=== PATIENT | female | born 1985 | race American Indian/Alaskan Native ===

== ENCOUNTER 2016-07-03 22:21 | Outpatient (CLI) | payer MEDICAID ==
[2016-07-03 23:20] VITALS: BP 123/64
[2016-07-04] MEDS ORDERED: VISTARIL PO ONE (00:06)
== END 2016-07-04 01:30 | disposition home or self-care (01) ==
LOC: TRG 22:21
PROVIDERS: ATTEND Obstetrics & Gynecology
DX: Z34.93 Encounter for supervision of normal pregnancy, unspecified, third trimester (principal); Z3A.37 37 weeks gestation of pregnancy
CPT/HCPCS: 59025

== ENCOUNTER 2016-07-16 12:04 | Inpatient (IN) | payer MEDICAID ==
[2016-07-16] MEDS ORDERED: XYLOCAINE 2% INFILTRATI ONE (12:22)
[2016-07-16] MEDS ORDERED: SUBLIMAZE IV PRN (12:22)
[2016-07-16] MEDS ORDERED: ePHEDrine SULFATE IV PRN (12:22)
[2016-07-16] MEDS ORDERED: BRETHINE SUB-Q PRN (12:22)
[2016-07-16] MEDS ORDERED: MINERAL OIL PO PRN (12:22)
[2016-07-16] MEDS ORDERED: ZOFRAN IV PRN (12:22)
--- NOTE | 2016-07-16 12:22 | History and Physical Report ---
History of Present Illness Date of examination: 07/16/16 (pt sent from [facility] office 6-7cm dilated) Date of admission: 07/16/16 12:04 History of present illness: Past History : 5 Term Births: 1 Premature Births: 0 Living Children: 1 Para: 1 Mult. Births: 0 Prev : 0 Aborta: 3 Elect. Ab: 0 Spont. Ab: 3 Ectopics: 0 # 1 Delivery date: 2007 Weeks Gestation: 6 Delivery type: SAB Anesthesia type: none Delivery location: - Infant Sex: - weight: - Comments: none # 2 Delivery date: 03/07/2014 Weeks Gestation: 39 labor: no Delivery type: Anesthesia type: none Delivery location: [facility] weight: 6.81 Comments: No D & C # 3 Delivery date: 09/22/2014 Weeks Gestation: 5-6 Delivery type: SAB Delivery location: [facility] [place] Comments: No D&C # 4 Delivery date: 04/18/2015 Weeks Gestation: 5-6 Delivery type: SAB Comments: No D&C Past Medical History: Reviewed history from 11/12/2013 and no changes required: Negative Past Medical History Past Surgical History: Reviewed history from 10/05/2015 and no changes required: D&C: prior to 2013 Past Medical History Abnormal PAP: negative YIFAN Exposure: negative Infertility: negative Uterine Anomaly: negative Uterine Surgery (not C/S): negative Other Gynecologic Problems: negative Social Hx: Patient is single Smoking History: Patient has never smoked. Infection History HIV Risk Eval: no Active Medications: None Current Allergies (reviewed today): No known allergies Laboratory Results Routine Urinalysis Leukocytes: negative Nitrite: negative Urobilinogen: negative Protein: 1+ Blood: negative Ketone: large (160) Bilirubin: negative Glucose: negative Urine HCG: positive Review of Systems General Complains of fatigue. Denies fever, chills, sweats, anorexia, weakness, malaise, weight loss and sleep disorder. Denies vaginal discharge, incontinence, dysuria, hematuria, urinary frequency, amenorrhea, menorrhagia, abnormal vaginal bleeding, pelvic pain, genital sores, decreased libido, painful periods, painful sex, urinary urgency, hot flashes, vaginal dryness, vaginal itching and vaginal odor. CV Denies chest pains, palpitations, syncope, dyspnea on exertion, orthopnea, PND and peripheral edema. Resp Denies cough, dyspnea at rest, excessive sputum, hemoptysis, wheezing and pleurisy. GI Denies nausea, vomiting, diarrhea, constipation, change in bowel habits, abdominal pain, melena, hematochezia, jaundice, gas/bloating, indigestion/ heartburn, dysphagia and odynophagia. Breast Complains of breast pain. Denies left breast lump, right breast lump, nipple discharge, bloody discharge from nipple, abnormal mammogram and breast enlargement. Psych Denies depression, anxiety, irritability and mood swings. 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 No evidence of cystocele or rectocele. Cervix: normal appearance, no lesions, no discharge Uterus: normal position, midline, mobile Adnexae: no masses or tenderness Rectovaginal: no masses or tenderness Past History - Obstetrical History Expected Date of Delivery: 07/20/16 Actual Gestation: 39 Week(s) 3 Day(s) : 8 Para: 1 Number of Living Children: 1 Medications and Allergies Allergies Allergy/AdvReac Type Severity Reaction Status Date / Time No Known Allergies Allergy Verified 01/27/14 21:26 Home Medications Medication Instructions Recorded Confirmed Last Taken Type Vit#96/Ferrous Fum/FA 1 tab PO DAILY 01/27/14 03/07/14 03/07/14 09:00 History [ Tablet] - Physical Exam Breasts: Positive: deferred Cardiovascular: Regular rate, Normal S1, Normal S2 Lungs: Positive: Normal air movement Abdomen: Positive: normal appearance, soft, normal bowel sounds. Negative: distention, tenderness Genitourinary (Female): Positive: normal external genitalia Vulva: both: normal Vagina: Positive: normal moisture. Negative: discharge Cervix: Negative: lesion, discharge Uterus: Positive: normal size, normal contour Adnexa: both: normal Anus/Rectum: Positive: normal perianal skin, heme negative. Negative: rectal mass, hemorrhoids Extremities: Positive: normal Deep Tendon Reflex Grade: Normal +2 - Obstetrical FHR: category 2 (early's) Uterine Contraction Monitor Mode: External Cervical Dilatation: 6.5 (per CNM in office) Cervical Effacement Percentage: 70 station: -1 Uterine Contraction Pattern: Regular Uterine Contraction Intensity: Moderate Results All other labs normal. Laboratory Data-Patient Name: LESTER WEBSTER Test Date Result Blood Type 12/13/2015 A Rh 12/13/2015 Negative Antibody Screen negative Rubella 12/13/2015 IMMUNE Serology (RPR) 06/15/2016 NR HBsAg 12/13/2015 Negative Hemoglobin 04/03/2016 11.6 Hematocrit 04/03/2016 33.9 Platelets 12/13/2015 291 [id number]/UL Chlamydia DNA 06/15/2016 Negative GC DNA/Culture 06/15/2016 Urine Culture 12/13/2015 Final report Group B Strep cult negative PAP 11/18/2015 Normal, Satisfactory HIV 06/15/2016 AFP/Quad Screen Glucola Test 3hr GTT (Fasting) 1 hr 2 hr 3 hr [facility]-Patient Name:LESTER WEBSTER Test Date Result Varicella Ab Sickle Cell 12/13/2015 Negative PPD Fibronectin Cystic Fibrosis Parvovirus TSH 10/05/2015 1.300 Free T4 Hepatitis C ALT AST Uric Acid Creatinine 24 hr Urine Protein CHANTAL Assessment and Plan 31yo @ 39 weeks in active labor GBS negative Orders in EMR
[2016-07-16 12:46] LABS: Hematocrit 36.4 % (30.3-42.9); Hemoglobin 12.9 gm/dl (10.1-14.3); Mean Corpuscular HGB Conc 35 % (30-34); Mean Corpuscular Hemoglobin 31 pg (28-32); Mean Corpuscular Volume 87 fl (79-97); Platelet Count 251 K/mm3 (140-440); Red Blood Count 4.17 M/mm3 (3.65-5.03); Red Cell Distribution Width 13.3 % (13.2-15.2); White Blood Count 8.4 K/mm3 (4.5-11.0)
[2016-07-16] MEDS ORDERED: PITOCin/NS 20 UNIT/1000ML DRIP 20 UNITS/1,000 ML BAG IV SCH (13:00)
[2016-07-16] MEDS ORDERED: LACTATED RINGERS 1,000 ML IV SCH (13:00)
[2016-07-16] MEDS ORDERED: PITOCin/NS 30 UNIT/500ML 30 UNITS/500 ML BAG IV SCH (13:00)
[2016-07-16] MEDS ORDERED: PHENERGAN PO PRN (14:14)
[2016-07-16] MEDS ORDERED: LANSINOH TP PRN (14:14)
[2016-07-16] MEDS ORDERED: TUCKS PAD TP PRN (14:14)
[2016-07-16] MEDS ORDERED: BENADRYL PO PRN (14:14)
[2016-07-16] MEDS ORDERED: MILK OF MAGNESIA PO PRN (14:14)
[2016-07-16] MEDS ORDERED: NORCO 5/325 PO PRN (14:14)
[2016-07-16] MEDS ORDERED: DULCOLAX PR PRN (14:30)
[2016-07-16] MEDS ORDERED: DERMOPLAST TP PRN (14:30)
[2016-07-16] MEDS ORDERED: TYLENOL PO PRN (14:30)
[2016-07-16] MEDS ORDERED: SODIUM CHLORIDE FLUSH SYRINGE 10 ML IV NR (15:00)
--- NOTE | 2016-07-16 15:46 | Procedure Note ---
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 8/9, EBL 300, Wgt 6-3. Pit IM. Pt OOB to shower Once returned to bed Pit IVFs going FF below umb Lochia small Mom and baby remain LDR stable. - Infant A at 1 minute: 8 at 5 minutes: 9 Gender: Female (wgt 6-3)
[2016-07-17] MEDS: MOTRIN PO SCH ×4 (00:02→12:05)
[2016-07-17] MEDS: COLACE PO SCH ×2 (00:02→10:50)
[2016-07-17 04:00] LABS: Hematocrit 35.8 % (30.3-42.9); Hemoglobin 12.6 gm/dl (10.1-14.3)
--- NOTE | 2016-07-17 07:56 | Progress Note ---
Assessment and Plan Patient doing well w/o complaints. desires d/c home today as long as baby can also be d/c'd home. VSSAF, srini scant, H&H 12.6/35.8. Plan for d/c home with routine f/u in office. - Patient Problems (1) Vaginal delivery Current Visit: No Status: Acute Subjective - Subjective Date of service: 07/17/16 Principal diagnosis: day #1 s/p Patient reports: appetite normal, voiding normally, pain well controlled, ambulating normally, no dizzy ambulation, no nauseated : doing well, nursing well Objective - Vital Signs Latest vital signs: Vital Signs Temp Pulse Pulse Resp BP BP 07/17/16 00:52 98.6 F 65 20 103/58 07/16/16 21:33 98.5 F 54 L 20 106/61 07/16/16 17:03 97.8 F 70 18 116/72 07/16/16 16:11 54 L 131/71 07/16/16 15:56 60 129/83 07/16/16 15:41 74 120/79 07/16/16 15:26 79 128/79 07/16/16 15:14 67 127/84 07/16/16 14:07 72 124/66 07/16/16 12:48 98.3 F 18 Intake and Output 07/16/16 07/17/16 07/17/16 22:59 06:59 14:59 Intake Total 720 Output Total 600 500 Balance 120 -500 Intake: Oral 360 Intake, Free Water 360 Output: Urine 600 500 Void 600 500 Other: Total, Intake Amount 360 Total, Output Amount 600 500 - Exam Breasts: Present: normal Cardiovascular: Present: Regular rate Lungs: Present: Clear to auscultation, Normal air movement Abdomen: Present: normal appearance, soft, normal bowel sounds Vulva: both: normal Uterus: Present: normal, firm, fundal height at umbilicus Extremities: Present: normal - Labs Labs: Abnormal lab results 07/16/16 Range/Units 12:30 MCHC 35 H (30-34) %
--- NOTE | 2016-07-17 08:02 | Discharge Summary ---
Providers - Providers Date of Admission: 07/16/16 12:04 Date of discharge: 07/17/16 (desires d/c home) Attending physician: SYDNEY GRIFFITH Primary care physician: SYDNEY GRIFFITH Hospitalization Reason for admission: active labor Delivery: Episiotomy: none Laceration: none Other procedures: none complications: none Discharge diagnosis: IUP at term delivered [place] baby: female Hospital course: uncomplicated vaginal delivery Condition at discharge: Good Disposition: DISCHARGED TO HOME OR SELFCARE - Discharge Diagnoses (1) Vaginal delivery Status: Acute Plan - Discharge Medications Prescriptions: Ibuprofen [Motrin 800 MG tab] 800 mg PO Q8HR PRN #30 tablet PRN Reason: Pain Lidocain2.5%/Prilocai2.5% [Emla] 5 gm TP ONCE PRN #1 tube PRN Reason: Pain - Provider Discharge Summary Activity: routine, no sex for 6 weeks, no heavy lifting 4 weeks, no strenuous exercise Diet: routine Instructions: routine Additional instructions: [] Smoking cessation referral if applicable(refer to patient education folder for contact #) [] Refer to [facility] Book[facility] Call your doctor immediately for: * Fever > 100.5 * Heavy vaginal bleeding ( >1 pad per hour) * Severe persistent headache * Shortness of breath * Reddened, hot, painful area to leg or breast * Drainage or odor from incision. * Keep incision clean and dry at all times and follow doctor's instructions regarding bathing/showering - Follow up plan Follow up: SYDNEY GRIFFITH MD [Primary Care Provider] - 08/14/16 (Congratulations! Please call [phone] to schedule your visit in 4 weeks. Call for any questions or concerns. )
[2016-07-17] MEDS ORDERED: PRENATAL VITAMIN PO SCH (10:00)
[2016-07-17] MEDS ORDERED: BOOSTRIX IM ONE (14:14)
[2016-07-17] MEDS ORDERED: M-M-R II VACCINE SUB-Q ONE (14:14)
[2016-07-17 17:37] VITALS: BP 100/62
== END 2016-07-17 17:00 | disposition home or self-care (01) | DRG 775 ==
LOC: LD 12:04 → OB 16:53
PROVIDERS: ADMIT Obstetrics & Gynecology; ATTEND Obstetrics & Gynecology
PROC: 10E0XZZ Delivery of Products of Conception, External Approach (ICD-10-PCS; principal; 2016-07-16)
PROC: 30233S1 Transfusion of Nonautologous Globulin into Peripheral Vein, Percutaneous Approach (ICD-10-PCS; 2016-07-17)
DX: O69.81X0 Labor and delivery complicated by cord around neck, without compression, not applicable or unspecified (principal); Z3A.39 39 weeks gestation of pregnancy; Z37.0 Single live birth
CPT/HCPCS: 36415; 85014; 85018; 85027; 85461; 86592; 86850; 86900; 86901; J2405; J2590; J2790; J3010; J7120

== ENCOUNTER 2020-01-29 06:04 | Day surgery (SDC) | payer MEDICAID ==
[2020-01-27 10:20] LABS: Mean Corpuscular HGB Conc 37 % (30-34); Mean Corpuscular Volume 86 fl (79-97); Platelet Count 311 K/mm3 (140-440); Red Blood Count 4.23 M/mm3 (3.65-5.03); Red Cell Distribution Width 12.5 % (13.2-15.2)
[2020-01-27 10:29] LABS: Hematocrit 36.3 % (30.3-42.9); Hemoglobin 13.4 gm/dl (10.1-14.3)
--- NOTE | 2020-01-28 19:18 | History and Physical Report ---
History of Present Illness Date of examination: 01/25/20 History of present illness: Patient has been reassessed/reevaluated. H&P has been reviewed. No interval changes. Patient desires sterilization. Discussed with various methods of contraceptives including abstinence, barrier and hormonal. Discussed oral, implantable, dermal, injectable,intravaginal and intrauterine methods. Patient declined temporary contraceptives. Discuss the permanency of sterilization. Vital Signs: Patient Profile: 34 Years Old Female LMP: 01/05/2020 Height: 66.5 inches (168.91 cm) Weight: 129 pounds BMI: 20.51 Temp: 98.2 degrees F BP sittin 102 / 70 (left arm) Menstrual History: LMP (date): 01/05/2020 On BCP's at conception: no Current Method of Contraception: None Date of Last Pap Smear: 07/10/2019 Past History : 7 Term Births: 2 Premature Births: 0 Living Children: 2 Para: 2 Mult. Births: 0 Prev : 0 Prev. attempt? 0 Aborta: 5 Elect. Ab: 0 Spont. Ab: 5 Ectopics: 0 # 1 Delivery date: 2007 Weeks Gestation: 6 Delivery type: SAB Anesthesia type: none Delivery location: - Sex: - weight: - Comments: none # 2 Delivery date: 03/07/2014 Weeks Gestation: 39 labor: no Delivery type: Anesthesia type: none Delivery location: [facility] weight: 6.81 Comments: No D & C # 3 Delivery date: 09/22/2014 Weeks Gestation: 5-6 Delivery type: SAB [place] [facility] [place] Comments: No D&C # 4 Delivery date: 04/18/2015 Weeks Gestation: 5-6 Delivery type: SAB Comments: No D&C # 5 Delivery date: 07/16/2016 Weeks Gestation: 39 Delivery type: Vaginal Anesthesia type: none Delivery location: [facility] Sex: female weight: 6'8' Comments: none # 6 Delivery date: 11/2018 Weeks Gestation: ? 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 of genital herpes: no Partner hx. of genital herpes: no Hx of STD: none Active Medications: None Current Allergies: No known allergies Past Medical History: Mild CP Past Surgical History: D&C: Family History Summary: Other Family Member - Has No Family History of Ovarvian Cancer - Entered On: 09/30/2014 Other Family Member - Has No Family History of Colon Cancer - Entered On: 09/30/2014 Other Family Member - Has No Family History of Cervical Cancer - Entered On: 09/30/2014 Other Family Member - Has No Family History of Breast Cancer - Entered On: 09/30/2014 Social History: Patient is single Smoking History: Patient has never smoked. Risk Factors: Smoked Tobacco Use: Never smoker Smokeless Tobacco Use: Never Passive smoke exposure: no Drug use: no HIV high-risk behavior: no Caffeine use: 0 drinks per day Alcohol use: no Exercise: no Seatbelt use: 100 % PAP Smear History: Date of Last PAP Smear: 07/10/2019 Review of Systems General Denies fever, chills, sweats, anorexia, fatigue, weakness, malaise, weight loss and sleep disorder. Denies vaginal discharge, incontinence, dysuria, hematuria, urinary frequency, amenorrhea, menorrhagia, abnormal vaginal bleeding, pelvic pain, genital sores, decreased libido, painful periods, painful sex, urinary urgency, hot flashes, vaginal dryness, vaginal itching and vaginal odor. CV Denies chest pains, palpitations, syncope, dyspnea on exertion, orthopnea, PND and peripheral edema. Resp Denies cough, dyspnea at rest, excessive sputum, hemoptysis, wheezing and pleurisy. GI Denies nausea, vomiting, diarrhea, constipation, change in bowel habits, abdominal pain, melena, hematochezia, jaundice, gas/bloating, i ndigestion/heartburn, dysphagia and odynophagia. Breast Denies left breast lump, right breast lump, nipple discharge, bloody discharge from nipple, breast pain, abnormal mammogram and breast enlargement. Psych Denies depression, anxiety, irritability and mood swings. [ Past History Past Medical History: other (SEE HPI FOR DETAILS) Past Surgical History: Other (SEE HPI FOR DETAILS) Social history: full code, other (SEE HPI FOR DETAILS) Family history: other (SEE HPI FOR DETAILS) Medications and Allergies Allergies Allergy/AdvReac Type Severity Reaction Status Date / Time No Known Allergies Allergy Verified 01/22/20 15:33 Home Medications Medication Instructions Recorded Confirmed Last Taken Type Ibuprofen [Motrin 800 MG tab] 800 mg PO Q8HR PRN #30 tablet 07/17/16 01/22/20 Un known Rx Review of Systems Constitutional: other (SEE HPI FOR DETAILS) Exam - Physical Exam Narrative exam: HEENT: normocephalic, no lesions or deformities Skin no significant abnormal lesions or rashes Chest: respiratory effort normal, clear to auscultation CV: regular, normal S1-S2, no murmur, no rub, no gallop Abdomen: normal bowel sounds, soft, nontender, no HSM Neuro: no gross anomalities Extremities: no clubbing, cyanosis, or edema 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 No evidence of cystocele or rectocele. Cervix: normal appearance, no lesions, no discharge Uterus: normal position, midline, mobile Adnexae: no masses or tenderness Rectovaginal: no masses or tenderness - Constitutional Vitals: Temp Pulse Resp BP Pulse Ox 98.7 F 70 18 98/55 98 01/27/20 09:45 01/27/20 09:45 01/27/20 09:45 01/27/20 09:45 01/27/20 09:45 Results - Labs CBC & Chem 7: 01/27/20 09:50 Assessment and Plan - Patient Problems (1) Encounter for sterilization Current Visit: Yes Status: Acute Plan to address problem: Patient desires sterilization.Discuss the permanency of sterilization. High risk of regret and 0.5 to 1% risk of failure. Discussed options of tubal blockage and salpingectomy and it's possible benefit of preventing ovarian cancer and increased risks of bleeding during the procedure. Discuss the risks of the surgery including infection, bleeding possibly heavy enough to require a blood transfusion, possible damage to bowel, bladder or ureter. Patient understands and desires to proceed with tubal blockage. 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
[2020-01-29] MEDS ORDERED: MIDAZOLAM 2 MG/2 ML INJ ONE (07:09)
[2020-01-29] MEDS ORDERED: LACTATED RINGERS 1,000 ML ONE (07:09)
[2020-01-29] MEDS ORDERED: BUPIVACAINE/PF (0.5%) 5 MG/1 ML 10 ML VIAL INFILTRATI ONE ×2 (07:12→08:15)
[2020-01-29] MEDS ORDERED: HYDROmorphone 1 MG/1 ML INJ IV PRN ×2 (07:15)
[2020-01-29] MEDS ORDERED: ONDANSETRON 4 MG/2 ML INJ IV PRN (07:15)
--- NOTE | 2020-01-29 07:16 | Anesthesia Day of Surgery ---
Anesthesia Day of Surgery - Day of Surgery Patient Examined: Yes Patient H&P Reviewed: Yes Patient is NPO: Yes
--- NOTE | 2020-01-29 07:16 | Anesthesia Consultation ---
Anesthesia Consult and Med Hx Date of service: 01/29/20 - Airway Anesthetic Teeth Evaluation: Good ROM Head & Neck: Adequate Mental/Hyoid Distance: Adequate Mallampati Class: Class II Intubation Access Assessment: Good - Pre-Operative Health Status ASA Pre-Surgery Classification: ASA1 Proposed Anesthetic Plan: General - Pulmonary Hx Asthma: No COPD: No Hx Pneumonia: No - Cardiovascular System Hx Hypertension: No - Central Nervous System Hx Seizures: No Hx Psychiatric Problems: No - Endocrine Hx Renal Disease: No Hx End Stage Renal Disease: No Hx Hypothyroidism: No Hx Hyperthyroidism: No - Hematic Hx Anemia: No Hx Sickle Cell Disease: No - Other Systems Hx Alcohol Use: No Hx Cancer: No
[2020-01-29] MEDS ORDERED: propofoL 200 MG/20 ML VIAL IV ONE (07:18)
[2020-01-29] MEDS ORDERED: ROCURONIUM 50 MG/5 ML INJ IV ONE (07:19)
[2020-01-29] MEDS ORDERED: LIDOCAINE MPF (2%) 20 MG/1 ML VIAL 5 ML ONE (07:19)
[2020-01-29] MEDS ORDERED: MIDAZOLAM 2 MG/2 ML INJ IV NR (08:00)
[2020-01-29] MEDS ORDERED: LACTATED RINGERS 1,000 ML IV SCH (08:00)
[2020-01-29] MEDS ORDERED: ONDANSETRON 4 MG/2 ML INJ ONE (08:14)
[2020-01-29] MEDS ORDERED: NEOSTIGMINE 10MG/10 ML INJ MDV ONE (08:14)
[2020-01-29] MEDS ORDERED: KETOROLAC 30 MG/1 ML INJ ONE (08:14)
[2020-01-29] MEDS ORDERED: GLYCOPYRROLATE 0.4 MG/2 ML INJ ONE ×2 (08:14)
[2020-01-29] MEDS ORDERED: SODIUM CHLORIDE 0.9% IRR 1,500 ML BOTTLE IR ONE (08:15)
--- NOTE | 2020-01-29 08:41 | Operative Report ---
Operative Report Operative Report: Date [default value] Preoperative diagnosis: Multiparity desiring permanent sterilization Post-operative diagnosis: Same Procedure name(s): Laparoscopic bilateral tubal ligation with Filshie clips Surgeon: Krystian Chauhan MD Filler Shredder: [] Anesthesia: General endotracheal EBL: Minimal Complications: None Findings: Normal uterus and tubes bilaterally Specimen(s): None Patient was brought in the operating room. General anesthesia was induced without difficulty. She was placed in dorsal lithotomy position. Prepped and draped in usual sterile manner. Her urinary bladder with was emptied with a red rubber catheter. A Food Runner uterine manipulator was placed. Attention was then switched to the patient's abdomen. An infra-umbilical incision was made with a scalpel. This incision was spread with a hemostat. A 5 mm trocar was placed in this incision while lifting high the abdominal wall. Intra-abdominal presence was verified directly with the laparoscope. The patient was then insufflated to approximately 3 L of CO2 gas. The patient's findings as noted above. An accessory puncture was made suprapubically. The 8 mm trocar was placed through this incision under direct visualization with no evidence of internal organ damage. Each of the fallopian tube were identified by its fimbriated end. A portion approximately 1-2 cm from each cornua was grasped with the Filshie clip applicator. A Filshie clip on the fallopian tube were placed without any difficulty bilaterally. At this time all instruments were removed. The patient was insufflated. The skin incisions were closed subcuticular with 4-0 Vicryl. Marcaine was given subcuticularly for postoperative pain relief. The patient tolerated procedure well. She was awakened in the operating room and accompanied to the recovery room in good condition.
--- NOTE | 2020-01-29 08:45 | Short Stay Summary ---
Short Stay Documentation Date of service: 01/29/20 - History Past Medical History: other (SEE HPI FOR DETAILS) Past Surgical History: Other (SEE HPI FOR DETAILS) Social history: full code, other (SEE HPI FOR DETAILS) - Allergies and Medications Current Medications: Allergies No Known Allergies Allergy (Verified 01/29/20 07:22) Home Medications Medication Instructions Recorded Confirmed Last Taken Type Ibuprofen [Motrin 800 MG tab] 800 mg PO Q8HR PRN #30 tablet 07/17/16 01/22/20 Unknown Rx oxyCODONE /ACETAMINOPHEN [Percocet 1 - 2 tab PO Q6HR PRN #10 tablet 01/29/20 Un known Rx 5/325 mg] Active Medications Hydromorphone HCl (Dilaudid) 0.25 mg IV Q10MIN PRN PRN Reason: Pain, Moderate (4-6) Hydromorphone HCl (Dilaudid) 0.5 mg IV Q10MIN PRN PRN Reason: Pain , Severe (7-10) Lactated Ringer's (Lactated Ringers) 1,000 mls @ 125 mls/hr IV DIRECT LOVE Midazolam HCl (Versed) 2 mg IV PREOP NR Stop: 01/29/20 23:59 Ondansetron HCl (Zofran) 4 mg IV ONCE PRN PRN Reason: Nausea And Vomiting - Physical exam General appearance: no acute distress HEENT: Atraumatic Lungs: Normal air movement Breasts: deferred Heart: Regular rate Gastrointestinal: distended Female Genitourinary: deferred Rectal Exam: deferred Extremities: no ischemia, pulses intact - Brief post op/procedure progress note Date of procedure: 01/29/20 (See operative note for details) - Hospital course Hospital course: Patient was admitted underwent the above him procedure without any complications. Patient will be discharged with follow-up in office in 1-2 weeks for postop check. - Disposition Condition at discharge: Good Disposition: DC-01 TO HOME OR SELFCARE - Discharge Diagnoses (1) Encounter for sterilization Status: Acute (2) Mild cerebral palsy Status: Chronic Short Stay Discharge Plan Activity: no restrictions, advance as tolerated Diet: regular Wound: open to air Additional Instructions: Patient office for fever, chills, nausea, vomiting or pain uncontrolled by pain relief. Follow up with: PRIMARY CARE,MD [Primary Care Provider] - 7 Days Prescriptions: oxyCODONE /ACETAMINOPHEN [Percocet 5/325 mg] 1 - 2 tab PO Q6HR PRN #10 tablet PRN Reason: Pain
--- NOTE | 2020-01-29 09:40 | Post Anesthesia Evaluation ---
- Post Anesthesia Evaluation Patient Participated: Yes Airway Patent: Yes Stable Respiratory Function: Yes Nausea/Vomiting: No Temp > 96.8F: Yes Pain Manageable: Yes Adequeate Hydration: Yes Anesthesia Complications: No Block Receding Appropriately: Not Applicable Patient on Ventilator: No
[2020-01-29 11:01] VITALS: BP 120/75
== END 2020-01-29 10:35 | disposition home or self-care (01) ==
LOC: OR 06:04
PROVIDERS: ATTEND Obstetrics & Gynecology
DX: Z30.2 Encounter for sterilization (principal); G80.9 Cerebral palsy, unspecified; Z79.899 Other long term (current) drug therapy; Z80.8 Family history of malignant neoplasm of other organs or systems; Z98.890 Other specified postprocedural states; Z82.49 Family history of ischemic heart disease and other diseases of the circulatory system
CPT/HCPCS: 36415; 58671; 84703; 85027; 93005; J1170; J1885; J2250; J2405; J2704; J2710; J7120

== ENCOUNTER 2020-04-08 16:07 | Emergency (ER) | payer MEDICAID ==
[2020-04-08 20:32] LABS: Bilirubin,Urine NEG (Negative); Blood,Urine NEG (Negative); Color,Urine Yellow (Yellow); HCG Qualitative,Urine Negative (Negative); Mucus,Urine 2+ /HPF; Protein,Urine <15 mg/dL mg/dL (Negative); RBC,Urine < 1.0 /HPF (0.0-6.0); Urobilinogen,Urine < 2.0 mg/dL (<2.0)
--- NOTE | 2020-04-08 21:31 | Ultrasound Report ---
US pelvic complete, US transvaginal INDICATION / CLINICAL INFORMATION: pelvic pain after tubal ligation on 01/28 COMPARISON: None available. TECHNIQUE: Multiple sonographic images of the pelvis were obtained and assessed for grayscale appeara nce and color Doppler flow. FINDINGS: The uterus measures 8.7 x 4.6 x 4.9 cm and is normal in echogenicity. The endometrial stripe measures 0.5 cm in thickness. The right ovary measures 2.9 x 1.9 x 2.2 cm and is normal in echogenicity. There are multiple small s imple right ovarian cysts, the largest measuring 1.3 cm. The left ovary measures 4.2 x 2.9 x 2.7 cm and is normal in echogenicity. There are multiple small si mple left ovarian cysts, the largest measuring 1.9 cm. There is trace pelvic free fluid adjacent to the cervix. IMPRESSION: 1. Bilateral simple ovarian cysts, likely physiologic. 2. Trace pelvic free fluid adjacent to the cervix. Signer Name: Graham Bedoya MD Signed: 04/08/2020 9:27 PM Workstation Name: [id number]
--- NOTE | 2020-04-08 21:51 | Emergency Department Report ---
ED Female HPI - General Chief complaint: Abdominal Pain Stated complaint: ABDOMINAL/PELVIC PAIN/LIGHT HEADED Time Seen by Provider: 04/08/20 20:09 Source: patient Mode of arrival: Ambulatory Limitations: No Limitations - History of Present Illness Initial comments: Patient is a 34-year-old female presents emergency room complaints of pelvic pain that began couple weeks ago. She states that she also has pain at her incision site. She states that she had a tubal ligation by Dr. Stanley on January 28. She denies any vaginal bleeding, vaginal discharge, drainage from the site, fever, vomiting, diarrhea, dysuria, any other symptoms. She states that she has followed up with her CONTRACT MANAGER twice and was advised that her symptoms were likely normal. She denies any past medical history. No allergies to medications. Last menstrual cycle mid February. - Related Data Previous Rx's Medication Instructions Recorded Last Taken Type Ibuprofen [Motrin 800 MG tab] 800 mg PO Q8HR PRN #30 tablet 07/17/16 1 Week Ago Rx ~01/22/20 oxyCODONE /ACETAMINOPHEN [Percocet 1 - 2 tab PO Q6HR PRN #10 tablet 01/29/20 Unknown Rx 5/325 mg] Naproxen [EC-Naprosyn] 500 mg PO BID PRN #14 tablet. 04/08/20 Unknown Rx Allergies Allergy/AdvReac Type Severity Reaction Status Date / Time No Known Allergies Allergy Verified 01/29/20 07:22 ED Review of Systems ROS: Stated complaint: ABDOMINAL/PELVIC PAIN/LIGHT HEADED Other details as noted in HPI Comment: All other systems reviewed and negative ED Past Medical Hx - Past Medical History Previous Medical History?: No Hx Hypertension: No Hx Congestive Heart Failure: No Hx Diabetes: No Hx Deep Vein Thrombosis: No Hx Renal Disease: No Hx Sickle Cell Disease: No Hx Seizures: No Hx Asthma: No Hx COPD: No Hx HIV: No - Surgical History Past Surgical History?: Yes Additional Surgical History: tubal ligation - Social History Smoking Status: Never Smoker - Medications Home Medications: Home Medications Medication Instructions Recorded Confirmed Last Taken Type Ibuprofen [Motrin 800 MG tab] 800 mg PO Q8HR PRN #30 tablet 07/17/16 01/29/20 1 Week Ago Rx ~01/22/20 oxyCODONE /ACETAMINOPHEN [Percocet 1 - 2 tab PO Q6HR PRN #10 tablet 01/29/20 Unknown Rx 5/325 mg] Naproxen [EC-Naprosyn] 500 mg PO BID PRN #14 tablet. 04/08/20 Unknown Rx ED Physical Exam - General Limitations: No Limitations General appearance: alert, in no apparent distress - Head Head exam: Present: atraumatic, normocephalic - Eye Eye exam: Present: normal appearance - ENT ENT exam: Present: mucous membranes moist - Respiratory Respiratory exam: Present: normal lung sounds bilaterally. Absent: respiratory distress, wheezes, rales, rhonchi, stridor, chest wall tenderness, accessory muscle use, decreased breath sounds, prolonged expiratory - Cardiovascular Cardiovascular Exam: Present: regular rate, normal rhythm, normal heart sounds. Absent: systolic murmur, diastolic murmur, rubs, gallop - GI/Abdominal GI/Abdominal exam: Present: soft, normal bowel sounds, other (incision site appears well healed, no signs of infection, likely an absorbable stitch is palpalable ). Absent: distended, tenderness, guarding, rebound, rigid - Back Exam Back exam: Absent: CVA tenderness (R), CVA tenderness (L) - Neurological Exam Neurological exam: Present: alert, oriented X3 - Psychiatric Psychiatric exam: Present: normal affect, normal mood - Skin Skin exam: Present: warm, dry, intact ED Course Vital Signs 04/08/20 04/08/20 16:36 22:06 Temperature 97.9 F 98.2 F Pulse Rate 70 75 Respiratory 16 16 Rate Blood Pressure 103/57 Blood Pressure 115/68 [Left] O2 Sat by Pulse 98 98 Oximetry ED Medical Decision Making - Lab Data Lab Results 04/08/20 Range/Units 20:20 Urine Color Yellow (Yellow) Urine Turbidity Clear (Clear) Urine pH 5.0 (5.0-7.0) Ur Specific [place] 1.024 (1.003-1.030) Urine Protein <15 mg/dl (Negative) mg/dL Urine Glucose (UA) Neg (Negative) mg/dL Urine Ketones 20 (Negative) mg/dL Urine Blood Neg (Negative) Urine Nitrite Neg (Negative) Urine Bilirubin Neg (Negative) Urine Urobilinogen < 2.0 (<2.0) mg/dL Ur Leukocyte Esterase Neg (Negative) Urine WBC (Auto) 1.0 (0.0-6.0) /HPF Urine RBC (Auto) < 1.0 (0.0-6.0) /HPF U Epithel Cells (Auto) 9.0 (0-13.0) /HPF Urine Mucus 2+ /HPF Urine HCG, Qual Negative (Negative) - Radiology Data Radiology results: report reviewed US pelvic complete, US transvaginal INDICATION / CLINICAL INFORMATION: pelvic pain after tubal ligation on 01/28 COMPARISON: None available. TECHNIQUE: Multiple sonographic images of the pelvis were obtained and assessed for grayscale appearance and color Doppler flow. FINDINGS: The uterus measures 8.7 x 4.6 x 4.9 cm and is normal in echogenicity. The endometrial stripe measures 0.5 cm in thickness. The right ovary measures 2.9 x 1.9 x 2.2 cm and is normal in echogenicity. There are multiple small simple right ovarian cysts, the largest measuring 1.3 cm. The left ovary measures 4.2 x 2.9 x 2.7 cm and is normal in echogenicity. There are multiple small simple left ovarian cysts, the largest measuring 1.9 cm. There is trace pelvic free fluid adjacent to the cervix. IMPRESSION: 1. Bilateral simple ovarian cysts, likely physiologic. 2. Trace pelvic free fluid adjacent to the cervix. Signer Name: Graham Bedoya MD Signed: 04/08/2020 8:27 PM Workstation Name: [id number] - Medical Decision Making Patient is a 34-year-old female presents emergency room complaints of pelvic pain that began couple weeks ago. She states that she also has pain at her incision site. She states that she had a tubal ligation by Dr. Stanley on January 28. She denies any vaginal bleeding, vaginal discharge, drainage from the site, fever, vomiting, diarrhea, dysuria, any other symptoms. She states that she has followed up with her CONTRACT MANAGER twice and was advised that her symptoms were likely normal. She denies any past medical history. No allergies to medications. Last menstrual cycle mid February. vitals are normal. on exam: incision site appears well healed, no signs of infection, likely an absorbable stitch is palpalable. UA without evidence of UTI. urine preg is negative. pelvic US: 1. Bilateral simple ovarian cysts, likely physiologic.2. Trace pelvic free fluid adjacent to the cervix. Discussed all results with patient and answered questions. Patient is afebrile, no tachycardia, no abd ttp on exam, do not suspect acute intra-abdominal infection. Discussed the importance of CONTRACT MANAGER follow-up with patient. Patient given prescription for naproxen. Advised patient Please take medication as prescribed as needed. Increase your water intake. Follow-up with your CONTRACT MANAGER. Follow-up with your primary care doctor. Return to emergency room for any new or worsening symptoms. Critical care attestation.: If time is entered above; I have spent that time in minutes in the direct care of this critically ill patient, excluding procedure time. ED Disposition Clinical Impression: Pelvic pain Ovarian cyst Qualifiers: Laterality: bilateral Qualified Code(s): N83.201 - Unspecified ovarian cyst, right side Disposition: TO HOME OR SELFCARE Is pt being admited?: No Does the pt Need Aspirin: No Condition: Stable Instructions: Pelvic Pain, Female, [id number], Ovarian Cyst, [id number], Abdominal Pain (ED) Additional Instructions: Please take medication as prescribed as needed. Increase your water intake. Follow-up with your CONTRACT MANAGER. Follow-up with your primary care doctor. Return to emergency room for any new or worsening symptoms. Prescriptions: Naproxen [EC-Naprosyn] 500 mg PO BID PRN #14 [email or web address] Reason: pain Referrals: PRIMARY CAREMD [Primary Care Provider] - 2-3 Days DAGMAR STANLEY MD [Staff Physician] - 2-3 Days Time of Disposition: 21:51 Print Language: SLOV[place]
[2020-04-08 22:07] VITALS: BP 115/68
== END 2020-04-08 22:06 | disposition home or self-care (01) ==
LOC: ED 16:07
DX: N83.209 Unspecified ovarian cyst, unspecified side (principal); R10.2 Pelvic and perineal pain; Z98.51 Tubal ligation status; Z79.1 Long term (current) use of non-steroidal anti-inflammatories (NSAID); Z79.899 Other long term (current) drug therapy
CPT/HCPCS: 76830; 76856; 81001; 81025